=== PATIENT | female | born 1950 | race Caucasian/White ===

== ENCOUNTER → 2018-09-25 | Day surgery (SDC) | payer OTHER ==
[~2018-09-25] VITALS: Ht 175.3 cm; Wt 84.3 kg
[~2018-09-25] MED LIST: BUPIVAC MPF-EPI 0.5%-1:200000 30 ML VIAL. ONE; BUPIVACAINE MPF 0.5% 30 ML VIAL. ONE; CHOL100013 PO; DEXAMETHASONE SOD PHOS 20 MG/5 ML VIAL. ONE; DOCU-109 PO; FAMOTIDINE 20 MG/2 ML VIAL ONE; HYDR-3164 PO; HYDROcodone/APAP 5/325MG 1 TAB TABLET PO PRN; HYDROmorphone 2 MG/ML VIAL IV PRN; IV RINGERS,LACTATED 1000ML 1,000 ML IV SCH; LIDOCAINE 1% PF 2 ML VIAL. ID PRN; LIDOCAINE 1% PF 2 ML VIAL. ONE; LIDOCAINE 1% PF 30 ML VIAL. ONE; LIDOCAINE 2% PF 5 ML VIAL. ONE; MIDAZOLAM HCL/PF 2 MG/2 ML VIAL. ONE; MORPHINE SULFATE 4 MG/ML VIAL. IV PRN; OMEG100021 PO; ONDA8TAB9 PO; ONDANSETRON PF 4 MG/2 ML VIAL. IV PRN; ONDANSETRON PF 4 MG/2 ML VIAL. ONE; PROCHLORPERAZINE 10 MG/2 ML VIAL. IV PRN; PROPOFOL 20 ML IV ONE; ROCURONIUM 50 MG/5 ML VIAL. ONE; SEVOFLURANE 61 TO 120 MINUTES. IH ONE; fentaNYL PF VIAL 100 MCG/2 ML VIAL IV PRN; fentaNYL PF VIAL 100 MCG/2 ML VIAL ONE
--- NOTE | 2018-09-25 11:44 | DISCH ---
DISCHARGE INSTRUCTIONS Condition on Discharge Condition on Discharge: Stable Activity After Discharge Activity Instructions for Disc: Other, see below Other activity instructions: ok to use figners Bathing Instructions: Shower-keep dressing dry Weight Bearing Status after Di: Non weight bearing Diet after Discharge Diet after Discharge: Regular Wound Incision Care Wound/Incision Care: Ice to area for comfort, Keep wound/cast CDI, Keep wound elevated, Do not change dressing Contacting the DR. after DC Call your doctor for: Concerns you may have Follow-Up Follow up with: Ashley in 2 wks DORINDA DELGADO II, MD Sep 25, 2018 11:44
--- NOTE | 2018-09-25 11:49 | PDOC4 ---
Operative Note Operative Note Date of Procedure: 09/25/18 Surgeon: Bryson Delgado Sap Consultant: KEYUR Bailey Pre-operative Diagnosis: Displaced, closed, left extraarticular distal radius fracture Post-operative Diagnosis: same Procedure Performed: Open reduction, internal fixation extraarticular distal radius fracture Anes: Gen plus regional nerve block Tourniquet Time: 30min Blood loss: 10mL Complications: none Components inserted: [employer] standard volar distal radius locking plate Reason for Procedure: Patient is a very pleasant 60-year-old female who suffered a ground-level fall onto an outstretched left upper extremity and was seen in the [facility] department where she was splinted and referred to myself for definitive management. Clinical and radiographic examination were performed and reviewed by myself. We had a discussion of the risks, benefits, and alternatives the above procedure and she wished to proceed. Description of procedure: Patient was greeted in the preoperative area by myself for the correct extremity was verified and marked. She had placement of a regional nerve block by the anesthesiology team prior to going back to the OR. She was taken back to the operative suite and her antibiotics were started as she was brought back. Once in the operating room, she was transferred gently supine to the operative room table and secured the bed with all pressure points padded. The hand board attachment was secured to the operating table. Nonsterile tourniquet applied to her left upper extremity. Splint was removed after successful induction of a general anesthetic and the left upper extremity was scrubbed with chlorhexidine. We then prepped and draped the left upper extremity in our usual sterile fashion and conducted our standard preoperative timeout. I palpated and marked her surface anatomy and guillermo a line from my standard volar Chun approach to the distal radius. Extremity was then exsanguinated with an Esmarch and tourniquet insufflated to 250 mmHg. I incised skin with a scalpel and dissected subcutaneous tissue with tenotomies. Identified the fascia and incised this in line with the skin incision. Bipolar cautery was used for hemostasis. After this, I was able to bluntly dissect down to the distal radius and pronator quadratus which had ruptured. There was a large amount hematoma. These comminution of periosteal elevator and electrocautery to expose the volar distal radius fracture and distal portion of the shaft. I then performed my reduction maneuver and confirmed good reduction under triplanar fluoroscopy. I then provisionally placed the plate against the bone and confirmed good hardware position and secured the plate to the bone with a nonlocking screw distal to the fracture site followed by filling more holes distal the fracture site with locking screws. I used a liberal fluoroscopy to avoid intra-articular hardware placement. I then secured the plate to the shaft with nonlocking screws and took my final images. I was happy with fracture reduction and hardware position. The operative field was then thoroughly irrigated with sterile fluid and the tourniquet was let down. There were a couple venous bleeders at the level of the skin which were cauterized. Inverted interrupted 2-0 Vicryl was used for subcutaneous tissue and 3-0 nylon in a mattress fashion for skin. All counts correct �2 prior to wound closure. At the conclusion, the arm and hand were cleansed and dried and a well-padded sugar tong splint was placed. Patient was awakened from anesthesia and transferred gently supine to the recovery room cart and taken to the PACU in stable and extubated condition. Postoperative plan is nonweightbearing. She will be discharged home. I will see her back in 2 weeks, sooner should a problem arise. BRYSON DELGADO II, MD Sep 25, 2018 11:49
[2018-09-25 14:30] VITALS: BP 188/82
== END | disposition home or self-care (01) ==
LOC: SURG 10:10
PROVIDERS: ATTEND Orthopaedic Surgery Sports Medicine
DX: S52.552A Other extraarticular fracture of lower end of left radius, initial encounter for closed fracture (principal); W18.39XA Other fall on same level, initial encounter; Y93.89 Activity, other specified; Y92.89 Other specified places as the place of occurrence of the external cause; Y99.8 Other external cause status; Z88.2 Allergy status to sulfonamides; Z90.49 Acquired absence of other specified parts of digestive tract
CPT/HCPCS: 25607; 76000; A7015; C1713; J0696; J1100; J2001; J2250; J2405; J2704; J3010; J3490